=== PATIENT | female | born 1990 | race African-American/Black ===

== ENCOUNTER 2018-04-30 09:44 | Emergency (ER) | payer OTHER ==
[~2018-04-30] VITALS: Ht 160 cm; Wt 81.7 kg
[2018-04-30 09:44] VITALS: BP 129/86
[~2018-04-30 09:44] MED LIST: AMOXICILLIN500 M1 PO; CLARITIN10 MG PO; FLEXERIL PO; IBUPROFEN 600600 M1 PO; IBUPROFEN 800800 MG PO; MEDROL DOSPAK21 TAB PO; MEDROLDOSEPACK PO; NOHOMEMEDICATIONS; NORCO 5-325 TA1 EACH PO; PENICILLIN V P500 MG PO; PENICILLIN VK250 MG PO; PENICILLIN VK500 MG PO; PREDNISONE 20 M20 M1 PO; PROAIR HFA8.5 GM IH; VENTOLIN HFA INH8 GM IH; ZPAK PO; ZYRTEC10 M2 PO
[2018-04-30] MEDS ORDERED: MEDROLDOSEPACK PO (10:49)
== END 2018-04-30 10:54 | disposition home or self-care (01) ==
LOC: ER 09:44
DX: L98.8 Other specified disorders of the skin and subcutaneous tissue (principal); J45.909 Unspecified asthma, uncomplicated; F17.210 Nicotine dependence, cigarettes, uncomplicated

== ENCOUNTER 2020-07-09 08:11 | Emergency (ER) | payer BC ==
[~2020-07-09] VITALS: Ht 160 cm; Wt 81.7 kg
[2020-07-09] MEDS ORDERED: FLAGYL500 M1 PO (08:56)
[2020-07-09] MEDS ORDERED: VIBRAMYCIN 100100 MG PO (08:59)
[2020-07-09 09:00] LABS: URINE BILIRUBIN NEGATIVE (Negative); URINE BLOOD TRACE (Negative); URINE CLARITY SL CLOUDY; URINE COLOR YELLOW; URINE GLUCOSE-RANDOM* NEGATIVE (Negative); URINE KETONES NEGATIVE (Negative); URINE NITRITE-REFLEX NEGATIVE (Negative); URINE PROTEIN (DIPSTICK) NEGATIVE (Negative); URINE SPECIFIC GRAVITY 1.025 (1.005-1.035)
[2020-07-09 09:08] LABS: URINE LEUKOCYTES-REFLEX 2+ (Negative)
[2020-07-09 09:30] LABS: SQUAMOUS >10 Many /LPF (0-3)
[2020-07-09 09:31] LABS: CASTS None Seen /LPF (None Seen); CRYSTALS None Seen /LPF (None Seen)
[2020-07-09 09:33] LABS: URINE RBC 0-2 Rare /HPF (0-2)
[2020-07-09 09:38] VITALS: BP 143/89
== END 2020-07-09 09:30 | disposition home or self-care (01) ==
LOC: ER 08:11
PROVIDERS: Student in an Organized Health Care Education/Training Program
DX: A59.01 Trichomonal vulvovaginitis (principal); F17.210 Nicotine dependence, cigarettes, uncomplicated; J45.909 Unspecified asthma, uncomplicated